=== PATIENT | male | born 1955 | race Caucasian/White ===

== ENCOUNTER 2021-03-27 13:02 | Emergency (ER) | payer BC, SELFPAY ==
[2021-03-27] VITALS (35 sets, daily range): BP systolic 106–137; BP diastolic 69–112; PULSE 44–138; RESP 13–24; TEMP 36.1; O2SAT 94–99
--- NOTE | 2021-03-27 13:00 | DI.RAD_ITS ---
Exam(s) XR PORTABLE CHEST AP EXAM: XR PORTABLE CHEST AP CLINICAL HISTORY: palpitations TECHNIQUE: 2D digital imaging was performed. COMPARISON: No exams were available for comparison FINDINGS: LUNGS: Suboptimal pulmonary inflation. Clear. No pleural abnormality seen. HEART: Normal. MEDIASTINUM: Normal. BONES: Unremarkable. IMPRESSION: No acute pulmonary findings. DATA REPOSITORY: RADIATION DOSE DELIVERED:
--- NOTE | 2021-03-27 13:00 | RT.EKG_ITS ---
APPROVED REPORT Exam: Resting ECG Reason for Exam: chest pain Patient Location: E HR:121 bpm ECG Measurements Heart Rate 121 AXIS DC [id number] P [id number] QRSd 90 QRS 4 QT 319 T 32 QTc 453 Conclusion Atrial fibrillation. Anteroseptal infarct, old...Q >40mS, V1-V2
--- NOTE | 2021-03-27 13:17 | W.ED.GENAD ---
Discharge Plan Disposition Patient Disposition: HOME Condition: Improving Discharge Details Clinical Impression: Atrial fibrillation Primary Care Provider: Unknown,Unknown ED Provider: Mellissa Wilder Home Meds and New Rx's Prescriptions: Continued quetiapine [Seroquel] 50 mg Tablet 100 mg PO HS RF: 0 lisinopril 5 mg Tablet 5 mg PO DAILY RF: 0 Eliquis 5 mg Tablet 5 mg PO BID RF: 0 Discharge Instructions Instructions: A-fib (Atrial Fibrillation) (ED) Additional Instructions: Cardioversion was again performed for you today and was successful. Labs are reassuring. Please call to schedule follow-up with cardiology in the next 2 weeks. Please continue with your medications as previously prescribed. If you develop chest pain, shortness of breath, recurrent symptoms or other new/worsening symptom please seek care urgently once again. Discharge Data Discharge Date/Time-TO BE ENTERED AT DEPARTURE: 03/27/21 15:53 Medical Decision Making <IGGY Robertson - Last Filed: 03/27/21 22:18> Patient is a pleasant 56-year-old gentleman presenting today with chief complaint of atrial fibrillation. Patient reports he becomes short of breath when he does go into atrial fibrillation. States that he had this intermittently since the age of 18. Patient is anticoagulated on Eliquis and has not missed any doses. Patient states that this came on while sitting and watching TV just prior to arrival. Reports that he has tried numerous medications to help with conversion and is never had, patient is never spontaneously converted to sinus rhythm. Each time patient has been in atrial fibrillation, he has required cardioversion. Spoke with the patient and his about this and they report that typically he is seen at [facility], was last seen her 2 months ago for the same. States that typically they sedate him with propofol and cardioversion. This typically occurs 1-2 times per year. Patient denies feeling out of his typical for this. Is not having any chest pain. Denies any nausea or vomiting. No pain radiating into the back. On exam, patient appears nontoxic. He is notably tachycardic his pulse ranges from 1 14-1 48. Blood pressure is stable at 137/112, oxygen 97% on room air. Lungs are clear. Cardiac auscultation concerning for irregularly irregular rhythm. Abdomen benign. Discussed case with Dr. Colon who will be assisting with cardioversion based on patient's history. Will hydrate the patient and give 1 g of magnesium. EKG was obtained and reviewed by Dr. Colon. Patient is an irregularly irregular rhythm consistent with atrial fibrillation at rate at 121. No acute evidence of ischemia. FINDINGS: Lungs: Interstitial prominence without acute airspace disease. Pleural spaces: No pleural effusion. Heart/Mediastinum: Epicardial fat, without cardiomegaly. Bones/joints: Degenerative change. IMPRESSION: No acute airspace or pleural disease. Labs reviewed. No significant abnormality. No leukocytosis, stable H&H. Labs without significant abnormality. Troponin within normal limits. Patient has failed all medical options historically and has required cardioversion since a young age. We discussed risk/benefits as well as expected procedural steps associated with procedural sedation and cardioversion.He is very familiar with this. He voices understanding and wishes to proceed. Procedural sedation was preformed by Dr. Colon. RT at bedside. Time out preformed. Patient was successfully cardioverted using 100J. Patient was immediately bradycardic with HR of 50. Repeat ECG obtained. Repeat ECG concerning for prolong MI and sinus bradycardia. Patient states that he typically has bradycardia with HR in the 40s. Patient has cleared the propofol well. Reports that he is feeling well. Denies CP, SOB. Requesting discharge. Spoke again with the patient's . They are well acquanted for continued care. He will continue with his anticoagulation. Advised f/u with cardiology. Return precautions discussed. All of his quesitons and concerns were addressed, he is in agreement with this plan. HPI <IGGY Robertson - Last Filed: 03/27/21 22:18> General Mode of arrival: ambulatory. Date/Time Provider Initiated Documentation: 03/27/21 13:06. Limitations to Documentation: no limitations. Information obtained by: patient, family (spoke with patient's Isamar over the phone) and RN notes reviewed. History of Present Illness 66 year old M presents to the emergency department with the chief complaint of atrial fibrillation, described as moderate and similar to prior episodes, with intensity rated at 1 (denies any pain, reports he feels slightly SOB with his abnormal rhythm). and is localized to the chest. Patient reports no radiation. Patient started experiencing this hour(s) and it has been constant. No relieving factors improve symptom(s), No exacerbating factors reported . Patient notes no other symptoms.; denies chest pain, cough, diaphoresis, fever/chills, headaches, nausea/vomiting, syncope and weakness. Patient did receive the following treatments prior to arrival, none Related Data Home Medications Medication Instructions Recorded Confirmed Eliquis 5 mg PO BID 03/27/21 03/27/21 lisinopril 5 mg PO DAILY 03/27/21 03/27/21 quetiapine [Seroquel] 100 mg PO HS 03/27/21 03/27/21 Allergies Allergy/AdvReac Type Severity Reaction Status Date / Time No Known Allergies Allergy Unverified 03/27/21 13:17 General Stated Complaint: Palpitatns GRETCHEN: 2 Review of Systems <IGGY Robertson - Last Filed: 03/27/21 22:18> Constitutional Constitutional: Reports as per HPI, Denies chills, Denies fever(s), Denies headache(s), Denies lethargy and Denies poor appetite Eyes Eyes: Denies change in vision ENT Ears, Nose, Mouth, and Throat: Denies dizziness and Denies headache(s) Cardiovascular Cardiovascular: Reports as per HPI, Denies chest pain, Denies chest pain at rest, Denies chest pain with activity, Denies syncope, Reports rapid heart rate, Denies leg edema, Denies lightheadedness, Reports dyspnea (reports vauge SOB symptom when she is a. fib) and Denies dyspnea on exertion Respiratory Respiratory: Reports as per HPI, Denies chest congestion, Denies cough, Denies pain on inspiration, Denies pain with cough, Reports dyspnea (reports vauge SOB symptom when she is a. fib), Denies dyspnea on exertion and Denies wheezing Gastrointestinal Gastrointestinal: Reports as per HPI, Denies abdominal pain, Denies diarrhea, Denies nausea and Denies vomiting Genitourinary Genitourinary: Denies system reviewed and no additional complaints, except as documented (denies change in urinary habits) Musculoskeletal Musculoskeletal: Reports as per HPI and Denies back pain Integumentary/Breasts Skin/Breast: Reports as per HPI and Denies rash Neurologic Neurologic: Reports as per HPI, Denies dizziness, Denies syncope and Denies headache(s) Allergic/Immunologic Allergic/Immunologic: Denies wheezing PFSH <IGGY Robertson - Last Filed: 03/27/21 22:18> Social History Smoking/Tobacco Use Status: Never Smoking risk assessment performed?: Yes Alcohol Intake: never Substance use type: does not use Do you feel safe at home: Yes Do you feel safe in your relationship?: Yes Exam <IGGY Robertson - Last Filed: 03/27/21 22:18> Const General: cooperative, healthy appearing, comfortable, no acute distress and well developed Nutritional Appearance: average body habitus and well nourished Orientation: alert, awake and oriented x3 Chest Chest: normal inspection of the chest, normal palpation of entire chest wall and no crepitus Resp Effort & Inspection: normal respiratory effort, able to speak in complete sentences and no respiratory distress Auscultation: clear to auscultation bilaterally, no rales, no rhonchi and no wheezes Cardio Rate: tachycardic Rhythm: abnormal rhythm irregularly irregular Heart Sounds: S1 normal and S2 normal GI Inspection: normal to inspection, no edema and non-distended Palpation: soft, no hepatosplenomegaly, not firm, no guarding, not rigid and nontender Auscultation: normal bowel sounds Skin General skin exam: no rashes or lesions noted Trauma: no lacerations or abrasions Neuro General: patient alert, patient awake and patient oriented x3 Cognition: normal cognition Speech: speech normal Gait: normal gait Extrem General: normal to inspection, capillary refill normal, no pedal edema, no calf tenderness and normal gait Psych Appearance: grossly normal and well kempt Mental Status: mental status grossly normal Speech and Movement: speech and movement normal Course <IGGY Robertson - Last Filed: 03/27/21 22:18> Vital Signs Vital signs: Vital Signs Temperature 36.1 C L 03/27/21 13:10 Pulse 133 H 03/27/21 13:10 Respiratory Rate 18 03/27/21 13:10 Blood Pressure 137/112 H 03/27/21 13:10 Pulse Oximetry 97 03/27/21 13:10 Temperature 36.1 C L 03/27/21 13:10 Temperature Source Skin 03/27/21 13:10 Pulse 133 H 03/27/21 13:10 Respiratory Rate 18 03/27/21 13:10 Blood Pressure 137/112 H 03/27/21 13:10 Blood Pressure Position Supine 03/27/21 13:10 Pulse Oximetry 97 03/27/21 13:10 Oxygen Delivery Method Room Air 03/27/21 13:10 Oxygen Flow Rate 0 03/27/21 13:10 Pain Level 0 03/27/21 13:10 <William Colon MD - Last Filed: 03/27/21 14:51> Procedural Sedation Indication: other (cardioversion) ASA Class: II Preparation: manufacturing test technician applied, pulse oximeter and capnometry used IV Propofol dose (mg): 75 Patient Tolerated Procedure: well
[2021-03-27] MEDS: MAGNESIUM SULFATE 1 GM/100 ML BAG IVPB (13:28)
[2021-03-27] MEDS: Normal Saline 1,000 ML 1000 ML IV (13:28)
[2021-03-27 13:32] LABS: Abs Immature Grans 0.01 10^3/uL (0.0-0.06); Absolute Basophil Count 0.04 10^3/uL (0.0-0.2); Absolute Eosinophil Count 0.16 10^3/uL (0.0-0.7); Absolute Lymphocyte Count 1.74 10^3/uL (1.2-3.4); Absolute Monocyte Count 0.52 10^3/uL (0.1-0.8); Absolute Neutrophil Count 4.46 10^3/uL (1.2-6.7); Basophils % 0.6; Eosinophils % 2.3; HCT 45.4 % (40.0-50.0); HGB 15.5 g/dL (13.5-17.5); Immature Grans % 0.1; Lymphocytes % 25.1; MCH 31.4 pg (27.0-33.0); MCHC 34.1 % (32.0-36.0); MCV 91.9 fL (80-95); MPV 10.3 fL (8.0-11.0); Monocytes % 7.5; Neutrophils % 64.4; Nucleated RBC 0 %; Platelet Count 266 10^3/uL (130-400); RBC 4.94 10^6/uL (4.36-5.78); RDW 12.8 % (11.8-14.1); RDW-SD 43.1 fL; WBC 6.93 10^3/uL (4.4-10.8)
[2021-03-27 13:49] LABS: PTT Activated 23.5 sec (21.0-27.5); Prothrombin Time 10.4 sec (9.3-11.0)
[2021-03-27 13:54] LABS: ALT 25 U/L (16-63); AST 15 U/L (15-37); Albumin 3.4 g/dL (3.4-5.0); Alkaline Phosphatase 87 U/L (46-116); Anion Gap 7.4 mmol/L (3-11); BUN 23 mg/dL (7-18); Bilirubin, Total 0.4 mg/dL (0.2-1.0); CO2 29.6 mmol/L (21.0-32.0); Calcium 8.7 mg/dL (8.5-10.1); Chloride 107 mmol/L (98-107); Glucose 120 mg/dL (74-106); Magnesium 1.8 mg/dL (1.8-2.4); Potassium 3.7 mmol/L (3.5-5.1); Sodium 144 mmol/L (136-145); TSH (W/Ref FT4) 0.95 uIU/mL (0.36-3.74); Total Protein 7.2 g/dL (6.4-8.2)
--- NOTE | 2021-03-27 13:55 | DI.VRAD_ITS ---
PROCEDURE INFORMATION: Exam: XR Chest Exam date and time: 03/27/2021 1:15 PM Age: 66 years old Clinical indication: Other: Palpitations TECHNIQUE: Imaging protocol: XR of the chest. Views: 1 view. COMPARISON: No relevant prior studies available. FINDINGS: Lungs: Interstitial prominence without acute airspace disease. Pleural spaces: No pleural effusion. Heart/Mediastinum: Epicardial fat, without cardiomegaly. Bones/joints: Degenerative change. IMPRESSION: No acute airspace or pleural disease. Dictated and Authenticated by: Salvador Polanco MD. Ordering:RAVI Malloy MD
[2021-03-27 14:04] LABS: Troponin I < 0.05 ng/mL (<0.06)
--- NOTE | 2021-03-27 14:45 | RT.EKG_ITS ---
APPROVED REPORT Exam: Resting ECG Reason for Exam: chest pain Patient Location: E HR:50 bpm ECG Measurements Heart Rate 50 AXIS UT 225 P 46 QRSd 102 QRS -12 QT 419 T 42 QTc 383 Conclusion Sinus bradycardia...rate< 60 Prolonged UT interval...UT >220
[2021-03-27] MEDS: Propofol 200 MG/20 ML VIAL 100 MG IVP (14:49)
--- NOTE | 2021-03-27 14:52 | NUR.NOTE ---
1444 50 MG PROPOFOL ADMINISTERED BY DR SCHILLING 1445 25MG PROPOFOL ADMINISTERED BY DR SANDOVAL 1445 CARDIOVERSION AT 100 JOULES. CONVERSION FROM AFIB RVR TO SINUS PROMISE 1449 EKG COMPLETE 1451 PT AWAKE, EASILY AROUSED
--- NOTE | 2021-03-27 15:00 | RESPIRATORY ---
Respiratory therapist present for conscious sedation. Suction was set up HOB and pt placed on NC with end tidal Capnography. Pt 98% on room air and was placed on 2lpm supplemental oxygen. Procedure advanced without incident and pt was placed back on room air with an SpO2 of 96% RA.
== END 2021-03-27 15:53 | disposition home or self-care (01) ==
PROVIDERS: Emergency Provider Physician Assistant
DX: I48.91 Unspecified atrial fibrillation (principal)
CPT/HCPCS: 80053; 93005; 96361; 96365; 99284; 71045; 83735; 84443; 84484; 85025; 85610; 85730; 93010; J2704; J3475